=== PATIENT | male | born 1955 | race Caucasian/White ===

== ENCOUNTER → 2021-09-11 09:05 | Outpatient (CLI) | payer MEDICARE, OTHER, SELFPAY ==
[2021-09-11 11:05] LABS: Testosterone 158 ng/dL (71.8-623)
== END ==
PROVIDERS: PCP Physician Assistant; Referring Provider Urology; Visit Provider Urology
DX: C61 Malignant neoplasm of prostate (principal)
CPT/HCPCS: 36415; 84403

== ENCOUNTER → 2021-09-22 09:02 | Outpatient (CLI) | payer MEDICARE, OTHER, SELFPAY ==
[2021-09-22 11:03] LABS: Testosterone 156 ng/dL (71.8-623)
== END ==
PROVIDERS: PCP Physician Assistant; Referring Provider Urology; Visit Provider Urology
DX: R97.20 Elevated prostate specific antigen [PSA] (principal); N52.9 Male erectile dysfunction, unspecified
CPT/HCPCS: 36415; 84153; 84403

== ENCOUNTER → 2022-03-19 10:35 | Outpatient (CLI) | payer MEDICARE, OTHER, SELFPAY ==
[2022-03-21 11:39] LABS: PSA Free % 18.3 % (.); PSA, Total 5.9 ng/mL (0.0-4.0)
== END ==
PROVIDERS: PCP Physician Assistant; Referring Provider Urology; Visit Provider Urology
DX: R97.20 Elevated prostate specific antigen [PSA] (principal)
CPT/HCPCS: 36415; 84153; 84154

== ENCOUNTER 2022-04-06 09:32 | Emergency (ER) | payer MEDICARE, OTHER, SELFPAY ==
[2022-04-06] VITALS (21 sets, daily range): BP systolic 134–194; BP diastolic 67–109; PULSE 86–101; RESP 11–25; TEMP 36.6; O2SAT 93–97; BMI 32.5
--- NOTE | 2022-04-06 09:54 | ED_ITS ---
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 Apparently has been gone she returned last night and noted that he had an unsteady gait. She thought that it might be due to the level of alcohol in his blood he did actually was not that high. Patient states that his dizziness is worse when he bends over. He has to get up slowly just is he has he has freed. He has not fallen. He denies chest pain or palpitations. He has no numbness tingling or weakness. No slurring of speech. However most history is from . Patient states that he actually did have a headache 3 days ago and he actually fell on the bathtub. He does have some bruising on his chest but he states he did not hit his head. On Anticoagulants: No Related Data Home Medications Medication Instructions Recorded Confirmed buspirone 5 mg tablet 5 mg PO BID 07/15/21 04/06/22 cholecalciferol (vitamin D3) 50 50 mcg PO DAILY 07/15/21 04/06/22 mcg (2,000 unit) capsule clindamycin phosphate 1 % topical 1 applic topical BID 07/15/21 04/06/22 solution (Cleocin T) clobetasol 0.05 % topical ointment 1 applic topical BID 07/15/21 04/06/22 (Temovate) fluconazole 100 mg tablet 100 mg PO DAILY 07/15/21 04/06/22 fluocinolone 0.01 % topical 1 applic topical BID 07/15/21 04/06/22 solution fluticasone propionate 50 1 spray intranasal DAILY 07/15/21 04/06/22 mcg/actuation nasal spray,suspension xuhcuxxhzkv-lgapd-afy-vit C-Mn 1 tab PO BID 07/15/21 04/06/22 multivitamin 1 tab PO DAILY 07/15/21 04/06/22 omeprazole 20 mg capsule,delayed 20 mg PO DAILY 07/15/21 04/06/22 release sertraline 100 mg tablet 100 mg PO DAILY 07/15/21 04/06/22 simvastatin 40 mg tablet 40 mg PO QPM 07/15/21 04/06/22 valsartan 320 mg tablet 160 mg PO DAILY 07/15/21 04/06/22 Previous Rx's Medication Instructions Recorded tolterodine 4 mg capsule,extended 4 mg PO DAILY #90 caps 08/18/21 release 24 hr (Detrol LA) Allergies Allergy/AdvReac Type Severity Reaction Status Date / Time No Known Drug Allergies Allergy Verified 04/06/22 09:37 Review of Systems Review of Systems Narrative: GENERAL: Denies chills, fatigue, malaise, fever, sweats, travel HEENT: Denies sinus pain, ear pain, sore throat, difficulty swallowing, neck pain RESPIRATORY: Denies dyspnea, cough, wheezing, hemoptysis, sputum. CARDIOVASCULAR: Denies chest pain, palpitations, orthopnea, edema GASTROINTESTINAL: Denies nausea, vomiting, abdominal pain, diarrhea, constipation, melena. : Denies dysuria, frequency, incontinence, hematuria, urinary retention, flank pain. MUSCULOSKELETAL: Denies weakness, joint pain, or bony pain SKIN: No rash, no erythema, no pruritus NEUROLOGIC: See HPI PSYCHIATRIC: No concerning psychosocial issues. 12 point review of systems is negative except for those stated above and HPI Hematologic/Lymphatic On Anticoagulants: No Patient History Medical History BPH (benign prostatic hyperplasia) CKD (chronic kidney disease) stage 3, GFR 30-59 ml/min Depression Elevated PSA Erectile dysfunction GI bleed HTN (hypertension) Hyperlipidemia Knee osteoarthritis Prediabetes Sleep apnea Spermatocele Urge incontinence of urine Urinary urgency Surgical History H/O prostate biopsy History of liver biopsy History of prostate surgery Family History Father Blood disease Hearing impairment Mother Hypertension Thyroid disorder Family/Other Diabetes mellitus Social History marital status: number of children: 0 Previous occupational history: retired Smoking Status: Never smoker alcohol intake: never caffeine: Yes Type(s) of exercise: walking frequency: daily duration: > 90 minutes/day Smoking Status: Never smoker alcohol intake frequency: other Substance Use Type: does not use Exam Initial Vital Signs Initial Vital Signs: Vital Signs Temperature 97.8 F 04/06/22 09:37 Pulse Rate 101 H 04/06/22 09:37 Respiratory Rate 15 04/06/22 09:37 Blood Pressure 183/109 H 04/06/22 09:37 Pulse Oximetry 96 04/06/22 09:37 Oxygen Delivery Method 04/06/22 09:37 GENERAL: Alert 66-year-old no acute distress HEENT: Head atraumatic,EOMI, pupils reactive, face symmetric, moist mucous membranes CARDIOVASCULAR: Regular rate and rhythm without murmurs, rubs or gallops. RESPIRATORY: Breath sounds equal bilaterally, no wheezes rales or rhonchi. ABDOMEN: Soft, nontender. Normoactive bowel sounds all 4 quadrants. No guarding or rebound. EXTREMITIES: Normal range of motion, no clubbing or edema. Neurovascularly intact NEUROLOGICAL: Alert and oriented x4.Normal gait and speech. Cranial nerves II through XII grossly intact. Good dxqrcf-eb-nifa, good mzds-el-meeh, strength equal bilaterally, no dysarthria or aphasia, sensation in tact to soft touch bilaterally, no visual changes, no facial droop SKIN: Abrasion center of chest and like left abdomen no other signs of trauma Scores GCS Ruthy coma scale eye opening: Spontaneous [place] coma scale verbal response: Orientated [place] coma scale motor response: Obey commands Ruthy coma scale total score: 15 NIH Stroke Scale Level of Conciousness: Alert, keenly responsive Ask month/age: Answers both questions correctly. Open/close eyes, close hand: Performs both tasks correctly Best gaze horizontal: Normal Visual banks: No visual loss Facial palsy: Normal symetrical movement Left arm drift: No drift for full 10 sec Right arm drift: No drift for full 10 sec Left leg drift: No drift for full 5 sec Right leg drift: No drift for full 5 sec Limb ataxia: Absent Sensory on face/arms/legs: Normal, no sensory loss Best language: No aphasia, normal Dysarthria: Normal Extinction or inattention: No abnormality Total NIH Stroke scale score: 0 Course Orders Ordered: ED Orders 04/06/22 09:50 Complete Blood Count AUTO DIFF Stat Comprehensive Metabolic Panel Stat Ethanol (ETOH) Stat Partial Thromboplastin Time Stat Prothrombin Time INR Stat Troponin & CK Cardiac Panel Stat 04/06/22 09:52 EKG-12 Lead Stat 04/06/22 09:58 CT head/brain wo con Stat 04/06/22 10:35 COVID19 -Nasal RAPID/Pre-Proc Stat 04/06/22 10:48 Chest [XR chest 1V] Stat Discontinued Medications Sodium Chloride (Normal Saline 0.9%) 1,000 mls @ 1,000 mls/hr IV CONT JENNIFER Last Admin: 04/06/22 10:41 Dose: Not Given Documented By: OJ Nicardipine HCl 25 mg/ Sodium (Chloride) 250 mls @ 50 mls/hr IV TITRATE JENNIFER; Protocol Last Titration: 04/06/22 11:48 Dose: 0 mg/hr, 0 mls/hr Documented By: Titration: 04/06/22 11:33 Dose: 15 mg/hr, 150 mls/hr Documented By: Titration: 04/06/22 11:13 Dose: 12.5 mg/hr, 125 mls/hr Documented By: Titration: 04/06/22 11:06 Dose: 10 mg/hr, 100 mls/hr Documented By: Titration: 04/06/22 10:49 Dose: 7.5 mg/hr, 75 mls/hr Documented By: Admin: 04/06/22 10:49 Dose: 5 mg/hr, 50 mls/hr Documented By: OJ Vital Signs Vital signs: Vital Signs - 8 hr 04/06/22 09:37 04/06/22 09:46 04/06/22 09:47 Temperature 97.8 F Pulse Rate 101 H 97 H Respiratory Rate 15 22 Blood Pressure 183/109 H 180/102 H Pulse Oximetry 96 97 Oxygen Delivery Method Room Air 04/06/22 10:00 04/06/22 10:00 04/06/22 10:12 Temperature Pulse Rate 93 H 93 H Respiratory Rate 22 25 H Blood Pressure 181/103 H Pulse Oximetry 96 97 Oxygen Delivery Method Room Air 04/06/22 10:12 04/06/22 10:15 04/06/22 10:15 Temperature Pulse Rate 92 H Respiratory Rate 12 Blood Pressure 194/108 H 160/84 H Pulse Oximetry 97 Oxygen Delivery Method 04/06/22 10:30 04/06/22 10:30 04/06/22 10:53 Temperature Pulse Rate 88 87 Respiratory Rate 11 L 18 Blood Pressure 148/75 H Pulse Oximetry 96 97 Oxygen Delivery Method 04/06/22 10:53 04/06/22 10:55 04/06/22 10:55 Temperature Pulse Rate 87 Respiratory Rate 15 Blood Pressure 156/95 H 169/91 H Pulse Oximetry 96 Oxygen Delivery Method 04/06/22 10:57 04/06/22 10:57 04/06/22 11:00 Temperature Pulse Rate 86 Respiratory Rate 15 Blood Pressure 161/89 H 156/101 H Pulse Oximetry 96 Oxygen Delivery Method 04/06/22 11:00 04/06/22 11:05 04/06/22 11:05 Temperature Pulse Rate 87 91 H Respiratory Rate 22 16 Blood Pressure 156/84 H Pulse Oximetry 96 96 Oxygen Delivery Method 04/06/22 11:10 04/06/22 11:10 04/06/22 11:12 Temperature Pulse Rate 90 90 Respiratory Rate 16 15 Blood Pressure 154/85 H Pulse Oximetry 95 95 Oxygen Delivery Method 04/06/22 11:12 04/06/22 11:15 04/06/22 11:15 Temperature Pulse Rate 92 H Respiratory Rate 22 Blood Pressure 149/81 H 147/77 H Pulse Oximetry 95 Oxygen Delivery Method Room Air 04/06/22 11:18 04/06/22 11:18 04/06/22 11:20 Temperature Pulse Rate 92 H 93 H Respiratory Rate 21 20 Blood Pressure 144/77 H Pulse Oximetry 95 94 Oxygen Delivery Method 04/06/22 11:20 04/06/22 11:25 04/06/22 11:25 Temperature Pulse Rate 92 H Respiratory Rate 19 Blood Pressure 143/73 H 134/67 Pulse Oximetry 93 Oxygen Delivery Method 04/06/22 11:30 04/06/22 11:30 04/06/22 11:33 Temperature Pulse Rate 96 H 95 H Respiratory Rate 21 18 Blood Pressure 146/67 H Pulse Oximetry 95 95 Oxygen Delivery Method 04/06/22 11:33 04/06/22 11:35 04/06/22 11:35 Temperature Pulse Rate 93 H Respiratory Rate 19 Blood Pressure 148/70 H 143/69 H Pulse Oximetry 93 Oxygen Delivery Method MDM - Neuro Symptoms/Deficit Lab Data Result diagrams: 04/06/22 09:50 04/06/22 09:50 Labs: Lab Results 04/06/22 04/06/22 04/06/22 Range/Units 09:50 09:50 09:50 WBC 7.6 (4.5-11.0) X10^3/uL RBC 4.45 L (4.5-5.9) X10^6/uL Hgb 14.3 (13.5-17.5) g/dL Hct 40.5 L (41-53) % MCV 91.2 (80-100) fL MCH 32.1 (26-34) PG MCHC 35.2 (30-36) % RDW 13.3 (11.6-14.8) % Plt Count 165 (150-400) X10^3/uL Neut % (Auto) 58.7 (50-75) % Lymph % (Auto) 32.3 (25-40) % Carlton % (Auto) 6.5 (3-14) % Eos % (Auto) 1.3 L (2-4) % Baso % (Auto) 1.2 (0-2) % Neut # (Auto) 4500 (7783-7190) /uL Lymph # (Auto) 2500 (2968-4925) /uL Carlton # (Auto) 500 (0-900) /uL Eos # (Auto) 100 (0-450) /uL Baso # (Auto) 100 (0-100) /uL PT 12.2 (10.1-12.7) SECONDS INR 1.1 (0.9-1.3) APTT 32 (26.4-36.2) SECONDS Sodium 140 (137-145) mmol/L Potassium 4.4 (3.4-5.1) mmol/L Chloride 108 H (98-107) mmol/L Carbon Dioxide 20 L (22-32) mmol/L BUN 12 (9-20) mg/dL Creatinine 1.10 (0.66-1.25) mg/dL Estimated GFR > 60 (>60) mL/min BUN/Creatinine Ratio 10.9 (6-22) Glucose 145 H (80-110) mg/dL Calcium 9.5 (8.4-10.2) mg/dL Total Bilirubin 0.8 (0.2-1.3) mg/dL AST 87 H (17-59) IU/L ALT 116 H (<50) IU/L Alkaline Phosphatase 69 (38-126) U/L Total Creatine Kinase 261 H (55-170) U/L CK-MB (CK-2) 1.43 (<2.37) ng/mL CK-MB (CK-2) Rel Index 0.5 L (1.5-5.0) % Troponin I < 0.012 (0.01-0.034) ng/mL Total Protein 8.0 (6.3-8.2) g/dL Albumin 4.9 (3.5-5.0) g/dL Globulin 3.1 (1.7-4.1) g/dL Albumin/Globulin Ratio 1.6 (1.0-2.8) Ethyl Alcohol < 10 ( - 10) mg/dL SARS-CoV-2 (PCR) (Negative) 04/06/22 Range/Units 10:35 WBC (4.5-11.0) X10^3/uL RBC (4.5-5.9) X10^6/uL Hgb (13.5-17.5) g/dL Hct (41-53) % MCV (80-100) fL MCH (26-34) PG MCHC (30-36) % RDW (11.6-14.8) % Plt Count (150-400) X10^3/uL Neut % (Auto) (50-75) % Lymph % (Auto) (25-40) % Carlton % (Auto) (3-14) % Eos % (Auto) (2-4) % Baso % (Auto) (0-2) % Neut # (Auto) (1980-9591) /uL Lymph # (Auto) (4014-0744) /uL Carlton # (Auto) (0-900) /uL Eos # (Auto) (0-450) /uL Baso # (Auto) (0-100) /uL PT (10.1-12.7) SECONDS INR (0.9-1.3) APTT (26.4-36.2) SECONDS Sodium (137-145) mmol/L Potassium (3.4-5.1) mmol/L Chloride (98-107) mmol/L Carbon Dioxide (22-32) mmol/L BUN (9-20) mg/dL Creatinine (0.66-1.25) mg/dL Estimated GFR (>60) mL/min BUN/Creatinine Ratio (6-22) Glucose (80-110) mg/dL Calcium (8.4-10.2) mg/dL Total Bilirubin (0.2-1.3) mg/dL AST (17-59) IU/L ALT (<50) IU/L Alkaline Phosphatase (38-126) U/L Total Creatine Kinase (55-170) U/L CK-MB (CK-2) (<2.37) ng/mL CK-MB (CK-2) Rel Index (1.5-5.0) % Troponin I (0.01-0.034) ng/mL Total Protein (6.3-8.2) g/dL Albumin (3.5-5.0) g/dL Globulin (1.7-4.1) g/dL Albumin/Globulin Ratio (1.0-2.8) Ethyl Alcohol ( - 10) mg/dL SARS-CoV-2 (PCR) Negative (Negative) Point of Care Testing Glucose POC [address] scan - head: Radiologist's Impression: CT Scan Report Signed Patient: Matthieu Torres MR#: [id number] : 1955 Acct:[id number] Age/Sex: 66 / M Date of Service: 04/06/22 Loc: ED Accession Number: [id number] ?? Procedure: CT head/brain wo con Ordering Provider: Smita Goodman D.O. PROCEDURE:? CT HEAD/BRAIN WO CON ? INDICATIONS:? dizzy x 3 days ? TECHNIQUE:? Noncontrast 4.5 mm thick angled axial sections acquired from the foramen magnum to the vertex, with coronal and sagittal reformats.? For radiation dose reduction, the following was used:? automated exposure control, adjustment of mA and/or kV according to patient size.? ? COMPARISON:? None. ? FINDINGS:? ? There is a mixed density right cerebral convexity subdural hematoma extending nearly the full AP width of the subdural space producing overall moderate mass effect manifesting as regional sulcal effacement and mild effacement of the right lateral ventricle.? There is approximately 8 millimeter right to left midline shift at the level of the septum pellucidum and 3rd ventricle.? There is somewhat dilated appearance of the basilar tip suspicious for a possible aneurysm.? Holland-white matter differentiation is maintained without CT evidence of an acute large territory infarct. ? IMPRESSION:? ? Mixed density right cerebral convexity hematoma, moderate-sized and producing overall moderate mass effect including 8 millimeter right left midline shift.? Mixed density attenuation of the hematoma indicates blood of different ages and suggests a recent bleeding event into the hematoma.? ? ? 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 CT angiogram of the head recommended when clinically appropriate.? ? Dictated by: Dank Garza M.D. on 04/06/2022 at 10:21 ? ? Chest x-ray: Radiologist's Impression: [facility] [id number] XRay Report Signed Patient: Matthieu Torres MR#: [id number] : 1955 Acct:[id number] Age/Sex: 66 / M Date of Service: 04/06/22 Loc: ED Accession Number: [id number] ?? Procedure: XR chest 1V Ordering Provider: Smita Goodman D.O. PROCEDURE:? XR CHEST 1V ? INDICATIONS:? fall ? TECHNIQUE:? One view of the chest was acquired.? ? COMPARISON:? None. ? FINDINGS:? ? Surgical changes and devices:? None.? ? Lungs and pleura:? Lungs are clear.? No pleural effusions or pneumothorax.? ? Mediastinum:? Mildly tortuous thoracic aorta is seen.? Heart size is enlarged.? ? Bones and chest wall:? No suspicious bony lesions.? Overlying soft tissues appear unremarkable.? ? IMPRESSION:? No acute cardiopulmonary pathology. ? ? Dictated by: Pantera Mims M.D. on 04/06/2022 at 11:08 ? ? ECG Data Interpretation: Normal sinus rhythm rate 98 OK interval 152 QRS [address] changes no T- wave inversions MDM Narrative Medical decision making narrative: Patient is found to have spontaneous acute on chronic subdural hematoma with 8 mm shift. He is neurologically intact she denies any headache nausea vomiting. Nicardipine drip is started for blood pressure control. Dr. Wallis at [facility] ED has been updated patient's symptoms test resulting kindly accepts patient for transfer. Critical Care Time Critical Care Time Critical Care Time: Yes Total Critical Care Time: 30 Attestation: The high probability of a clinically significant, sudden or life threatening deterioration of the [cardiovascular] system(s) required my full and direct attention, intervention and personal management. The aggregate critical care time was 30 minutes. This time is in addition to time spent performing reported procedures but includes the following: [x] Data Review and interpretation [x] Patient assessment and monitoring of vital signs [x] Documentation [x] Medication orders and management Discharge Plan Departure Patient Disposition: [facility] Clinical Impression: Acute subdural hematoma Prescriptions: No Action tolterodine [Detrol LA] 4 mg capsule,extended release 24hr 4 mg PO DAILY Qty: 90 3RF fluconazole 100 mg tablet 100 mg PO DAILY omeprazole 20 mg capsule,delayed release(DR/EC) 20 mg PO DAILY valsartan 320 mg tablet 160 mg PO DAILY simvastatin 40 mg tablet 40 mg PO QPM sertraline 100 mg tablet 100 mg PO DAILY buspirone 5 mg tablet 5 mg PO BID fluticasone propionate 50 mcg/actuation spray,suspension 1 spray intranasal DAILY Rx Instructions: administer into each nostril clindamycin phosphate [Cleocin T] 1 % solution 1 applic topical BID fluocinolone 0.01 % solution 1 applic topical BID multivitamin Tablet 1 tab PO DAILY valszwoqmnp-wehkj-rro-vit C-Mn 1 tab PO BID cholecalciferol (vitamin D3) 50 mcg (2,000 unit) capsule 50 mcg PO DAILY clobetasol [Temovate] 0.05 % ointment 1 applic topical BID Referrals: Starla Kaur PA-C [Primary Care Provider] -
--- NOTE | 2022-04-06 09:58 | DI.CT.S_ITS ---
PROCEDURE: CT HEAD/BRAIN WO CON INDICATIONS: dizzy x 3 days TECHNIQUE: Noncontrast 4.5 mm thick angled axial sections acquired from the foramen magnum to the vertex, with coronal and sagittal reformats. For radiation dose reduction, the following was used: automated exposure control, adjustment of mA and/or kV according to patient size. COMPARISON: None. FINDINGS: There is a mixed density right cerebral convexity subdural hematoma extending nearly the full AP width of the subdural space producing overall moderate mass effect manifesting as regional sulcal effacement and mild effacement of the right lateral ventricle. There is approximately 8 millimeter right to left midline shift at the level of the septum pellucidum and 3rd ventricle. There is somewhat dilated appearance of the basilar tip suspicious for a possible aneurysm. Holland-white matter differentiation is maintained without CT evidence of an acute large territory infarct. IMPRESSION: Mixed density right cerebral convexity hematoma, moderate-sized and producing overall moderate mass effect including 8 millimeter right left midline shift. Mixed density attenuation of the hematoma indicates blood of different ages and suggests a recent bleeding event into the hematoma. 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 CT angiogram of the head recommended when clinically appropriate. Dictated by: Dank Garza M.D. on 04/06/2022 at 10:21 Approved by: Dank Garza M.D. on 04/06/2022 at 10:27
[2022-04-06 10:09] LABS: Add Manual Diff / Slide Review NO; Basophils Absolute Auto 100 /uL (0-100); Basophils Percent Auto 1.2 % (0-2); Eosinophils Absolute Auto 100 /uL (0-450); Eosinophils Percent Auto 1.3 % (2-4); Hematocrit 40.5 % (41-53); Hemoglobin 14.3 g/dL (13.5-17.5); Lymphocytes Absolute Auto 2500 /uL (1100-4500); Lymphocytes Percent Auto 32.3 % (25-40); Mean Corpuscular HGB Conc 35.2 % (30-36); Mean Corpuscular Hemoglobin 32.1 PG (26-34); Mean Corpuscular Volume 91.2 fL (80-100); Monocytes Absolute Auto 500 /uL (0-900); Monocytes Percent Auto 6.5 % (3-14); Neutrophils Absolute Auto 4500 /uL (1500-7000); Neutrophils Percent Auto 58.7 % (50-75); Platelet Count 165 X10^3/uL (150-400); Red Blood Cell Count 4.45 X10^6/uL (4.5-5.9); Red Cell Distribution Width 13.3 % (11.6-14.8); White Blood Cell Count 7.6 X10^3/uL (4.5-11.0)
[2022-04-06 10:21] LABS: INR 1.1 (0.9-1.3); Prothrombin Time 12.2 SECONDS (10.1-12.7)
[2022-04-06 10:24] LABS: PTT Partial Thromboplastin Tim 32 SECONDS (26.4-36.2)
[2022-04-06 10:30] LABS: Alanine Aminotransferase 116 IU/L (<50); Albumin 4.9 g/dL (3.5-5.0); Albumin Globulin Ratio 1.6 (1.0-2.8); Alkaline Phosphatase 69 U/L (38-126); Aspartate Aminotransferase 87 IU/L (17-59); BUN Creatinine Ratio 10.9 (6-22); Bilirubin Total 0.8 mg/dL (0.2-1.3); Blood Urea Nitrogen 12 mg/dL (9-20); Calcium 9.5 mg/dL (8.4-10.2); Carbon Dioxide 20 mmol/L (22-32); Chloride 108 mmol/L (98-107); Creatine Kinase 261 U/L (55-170); Estimated Glomerular Filt Rate > 60 mL/min (>60); Ethanol (ETOH) < 10 mg/dL; Globulin 3.1 g/dL (1.7-4.1); Glucose 145 mg/dL (80-110); HEMOLYSIS 19 (0-50); Potassium 4.4 mmol/L (3.4-5.1); Sodium 140 mmol/L (137-145)
--- NOTE | 2022-04-06 10:30 | PC.NURSE ---
[facility] contacted at 1030am, images and facesheet sent.
[2022-04-06 10:41] LABS: Troponin I < 0.012 ng/mL (0.01-0.034)
[2022-04-06 10:44] LABS: CKMB % Relative Index 0.5 % (1.5-5.0); Creatine Kinase MB 1.43 ng/mL (<2.37)
--- NOTE | 2022-04-06 10:48 | DI.RAD.S_ITS ---
PROCEDURE: XR CHEST 1V INDICATIONS: fall TECHNIQUE: One view of the chest was acquired. COMPARISON: None. FINDINGS: Surgical changes and devices: None. Lungs and pleura: Lungs are clear. No pleural effusions or pneumothorax. Mediastinum: Mildly tortuous thoracic aorta is seen. Heart size is enlarged. Bones and chest wall: No suspicious bony lesions. Overlying soft tissues appear unremarkable. IMPRESSION: No acute cardiopulmonary pathology. Dictated by: Pantera Mims M.D. on 04/06/2022 at 11:08 Approved by: Pantera Mims M.D. on 04/06/2022 at 11:09
[2022-04-06] MEDS: NICARDIPINE 25 MG in SODIUM CHLORIDE 0.9% 240 ML 50 MG IV (10:49)
[2022-04-06 11:12] LABS: COVID19 -Nasal RAPID Negative (Negative)
== END 2022-04-06 11:49 | disposition short-term general hospital (02) ==
PROVIDERS: Emergency Provider Emergency Medicine; PCP Physician Assistant
DX: S06.5X0A Traumatic subdural hemorrhage without loss of consciousness, initial encounter (principal); R51.9 Headache, unspecified; S20.319A Abrasion of unspecified front wall of thorax, initial encounter; Z20.822 Contact with and (suspected) exposure to COVID-19; W18.2XXA Fall in (into) shower or empty bathtub, initial encounter
CPT/HCPCS: 36415; 70450; 70496; 70498; 71045; 80053; 80320; 82550; 82553; 82962; 84484; 85025; 85610; 85730; 87635; 93005; 93010; 96365; 99285; C9803

== ENCOUNTER 2022-04-22 09:24 | Emergency (ER) | payer MEDICARE, OTHER, SELFPAY ==
[2022-04-22] VITALS (12 sets, daily range): BP systolic 158–189; BP diastolic 80–113; PULSE 89–112; RESP 16–18; TEMP 36.7; O2SAT 95–97; BMI 33.2
--- NOTE | 2022-04-22 09:43 | DI.CT.S_ITS ---
PROCEDURE: CT HEAD/BRAIN WO CON INDICATIONS: recent brain surgery,HTN,dizzy and nauseated TECHNIQUE: Noncontrast 4.5 mm thick angled axial sections acquired from the foramen magnum to the vertex, with coronal and sagittal reformats. For radiation dose reduction, the following was used: automated exposure control, adjustment of mA and/or kV according to patient size. COMPARISON: [facility], CT, CT HEAD/BRAIN WO CON, 04/06/2022, 9:57. FINDINGS: Image quality: Excellent. CSF spaces: Basal cisterns are patent. The ventricles are symmetric in size and shape. Brain: There is a low-density right several hematoma seen, with a maximum thickness of 1.6 cm. No nenita acute components are seen. This is improved compared to the prior examination. There remains midline shift, which is also improved compared to the prior examination, now measuring 4 mm. No intracranial masses. There is cerebral volume loss for age, with resultant ventricular and sulcal prominence. There are periventricular and deep white matter chronic small vessel ischemic changes. There is intracranial internal carotid artery atherosclerosis. Skull and face: Right-sided anant holes can be seen. Calvarium and visualized facial bones appear intact, without suspicious lesions. Sinuses: Visualized sinuses and mastoids are clear. IMPRESSION: Interval right-sided anant holes, with improved right-sided subdural hematoma, yet without resolution. Improved midline shift, 4 mm. No nenita acute interval hemorrhage is seen. Dictated by: Skyler Cornejo M.D. on 04/22/2022 at 8:52 Approved by: Skyler Cornejo M.D. on 04/22/2022 at 8:54
--- NOTE | 2022-04-22 10:32 | PC.NURSE ---
increasing bp's, recent cranial sx at [facility], yesterday period of dizzy/fatigue, denies current complaint of those symptoms.
[2022-04-22] MEDS: SODIUM CHLORIDE 0.9% 1,000 ML 125 ML IV (10:56)
[2022-04-22 10:59] LABS: Add Manual Diff / Slide Review NO; Basophils Absolute Auto 100 /uL (0-100); Basophils Percent Auto 1.2 % (0-2); Eosinophils Absolute Auto 100 /uL (0-450); Eosinophils Percent Auto 1.2 % (2-4); Hematocrit 39.4 % (41-53); Hemoglobin 13.7 g/dL (13.5-17.5); Lymphocytes Absolute Auto 2500 /uL (1100-4500); Lymphocytes Percent Auto 27.7 % (25-40); Mean Corpuscular HGB Conc 34.6 % (30-36); Mean Corpuscular Hemoglobin 31.5 PG (26-34); Mean Corpuscular Volume 91.1 fL (80-100); Monocytes Absolute Auto 500 /uL (0-900); Monocytes Percent Auto 5.3 % (3-14); Neutrophils Absolute Auto 5900 /uL (1500-7000); Neutrophils Percent Auto 64.6 % (50-75); Platelet Count 235 X10^3/uL (150-400); Red Blood Cell Count 4.33 X10^6/uL (4.5-5.9); White Blood Cell Count 9.2 X10^3/uL (4.5-11.0)
[2022-04-22 11:11] LABS: Alanine Aminotransferase 95 IU/L (<50); Albumin 4.8 g/dL (3.5-5.0); Albumin Globulin Ratio 1.7 (1.0-2.8); Alkaline Phosphatase 76 U/L (38-126); Aspartate Aminotransferase 70 IU/L (17-59); BUN Creatinine Ratio 14.9 (6-22); Bilirubin Total 0.5 mg/dL (0.2-1.3); Blood Urea Nitrogen 18 mg/dL (9-20); Calcium 9.4 mg/dL (8.4-10.2); Carbon Dioxide 24 mmol/L (22-32); Chloride 106 mmol/L (98-107); Creatine Kinase 80 U/L (55-170); Estimated Glomerular Filt Rate > 60 mL/min (>60); Globulin 2.9 g/dL (1.7-4.1); Glucose 118 mg/dL (80-110); HEMOLYSIS < 15 (0-50); Potassium 4.4 mmol/L (3.4-5.1); Sodium 138 mmol/L (137-145); Total Protein 7.7 g/dL (6.3-8.2)
[2022-04-22 11:22] LABS: NT-proBNP (BNP-Adult 18+) 37 pg/mL (<125); Troponin I < 0.012 ng/mL (0.01-0.034)
[2022-04-22 11:23] LABS: COVID19 -Nasal RAPID Negative (Negative)
--- NOTE | 2022-04-22 12:38 | DI.CT.S_ITS ---
PROCEDURE: CT ANGIO HEAD AND NECK INDICATIONS: s/p craniotomy, dizziness, incontinence x1 TECHNIQUE: Noncontrast images were performed earlier in the day and not repeated. After the administration of intravenous contrast, 1 mm thick sections acquired from the aortic arch through the [place]. Post-contrast 4.5 mm thick sections then re-acquired from the foramen magnum to the vertex. 3-dimensional benowtk-ghvsxkelj-ampbeueomr (MIP) and/or volume rendering reformats were acquired of the central intracranial vasculature and neck separately. For radiation dose reduction, the following was used: automated exposure control, adjustment of mA and/or kV according to patient size. COMPARISON: [facility], CT, CT HEAD/BRAIN WO CON, 04/06/2022, 9:57. [facility], CT, CT HEAD/BRAIN WO CON, 04/22/2022, 9:44. FINDINGS: Image quality: This examination is limited by involuntary motion artifact. BRAIN: CSF spaces: Ventricles are normal in size and shape. Basal cisterns are patent. No extra-axial fluid collections. Brain: Stable resolving right-sided subdural hemorrhage is again seen, with 4 mm of midline shift. No midline shift. [place]-white matter interface appears intact. Skull and face: Right-sided anant holes are seen. Calvarium and facial bones appear intact, without suspicious lesions. Orbits appear normal. Sinuses: Sinuses and mastoids are clear. HEAD CT ANGIOGRAPHY: Anterior circulation: Intracranial internal carotid arteries are normal in size and flow. The flow within the paired anterior cerebral arteries is normal and symmetric. The flow within the middle cerebral arteries is normal and symmetric. The anterior communicating artery is seen. No aneurysms are seen. Posterior circulation: Visualized portions of the vertebral arteries demonstrate normal caliber, and join to form a normal appearing basilar artery. Flow within the posterior cerebral arteries is normal and symmetric. No aneurysms are seen. NECK CT ANGIOGRAPHY: Carotid system: The great vessels demonstrate a conventional anatomy as they arise from the aortic arch. The origins of the common carotid arteries appear patent. The common carotid arteries demonstrate normal caliber and courses. The bifurcation regions are both widely patent. The internal carotid arteries demonstrate normal calibers and courses. Posterior circulation: The origins of the vertebral arteries both appear widely patent. The more superior extracranial portions of both vertebral arteries also demonstrate normal courses and calibers. They join to form a normal appearing basilar artery. Soft tissues: Visualized neck soft tissues demonstrate no suspicious abnormalities. Bones: No suspicious bony lesions. Visualized cervical spine appears normally aligned. Cervical spine degenerative changes are seen, with moderate disc space narrowing at C3-C4 and at least moderate disc space narrowing at C4-C5, C5-C6, and C6-C7. Post erected endplate osteophytes are seen, which are worst at C5-C6. IMPRESSION: No significant intracranial arterial abnormality is seen. Stable resolving right-sided subdural hemorrhage, with associated anant holes. Within the arteries of the neck, no hemodynamically significant stenosis can be seen. Cervical spine degenerative changes are noted. Any quantitative measurements of stenosis were performed using NASCET criteria. Dictated by: Skyler Cornejo M.D. on 04/22/2022 at 12:19 Approved by: Skyler Cornejo M.D. on 04/22/2022 at 12:22
--- NOTE | 2022-04-22 12:46 | ED.GENADULT ---
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 He is 2 weeks status post right frontal anant hole evacuation and drainage at [facility]. Patient endorses that his blood pressure has been elevated above his baseline following his surgery. He reports that it used to be systolic 130s, it has been up to 160s after his surgery and he is concerned this is the reason for his symptoms yesterday. He had one episode of urinary incontinence, and has had dizziness without vision changes since yesterday. He denies any vision changes today, he denies any incontinence today or urinary retention. He denies any dribbling, fever, nausea, vomiting, unstable gait. He reports that he is eating and drinking per his normal without any difficulty. Patient reports that he has follow-up with Neurosurgery at [facility] scheduled 04/27/2022 with nurse practitioner Leyda. He denies any recent trauma, states that it is possible he has been having too much exertion or activity at home, he thinks that he has been dehydrated, denies any recent fever, runny nose, cough, shortness of breath, chest pain, weakness, sensation changes anywhere. Related Data Home Medications Medication Instructions Recorded Confirmed buspirone 5 mg tablet 5 mg PO BID 07/15/21 04/14/22 cholecalciferol (vitamin D3) 50 50 mcg PO DAILY 07/15/21 04/14/22 mcg (2,000 unit) capsule clobetasol 0.05 % topical ointment 1 applic topical BID 07/15/21 04/14/22 (Temovate) fluconazole 100 mg tablet 100 mg PO DAILY 07/15/21 04/14/22 toviajhbwcz-uzooc-cxc-vit C-Mn 1 tab PO BID 07/15/21 04/14/22 multivitamin 1 tab PO DAILY 07/15/21 04/14/22 omeprazole 20 mg capsule,delayed 20 mg PO DAILY 07/15/21 04/14/22 release sertraline 100 mg tablet 100 mg PO DAILY 07/15/21 04/14/22 valsartan 320 mg tablet 160 mg PO DAILY 07/15/21 04/14/22 Previous Rx's Medication Instructions Recorded tolterodine 4 mg capsule,extended 4 mg PO DAILY #90 caps 04/14/22 release 24 hr (Detrol [place]) Allergies Allergy/AdvReac Type Severity Reaction Status Date / Time No Known Drug Allergies Allergy Verified 04/22/22 09:31 Review of Systems <RICH Valero - Last Filed: 04/22/22 19:19> Review of Systems Narrative: Independently reviewed vitals signs and nursing notes. General: cooperative, comfortable, in no acute distress, well groomed Head: atraumatic, symmetrical facial expressions, amanuel present to right frontal and temporal region, Neck: supple Eyes: equal round and reactive, EOMI, conjunctiva normal, no nystagmus Nose: nares patent, no rhinorrhea Mouth/Throat: moist mucus membranes Cardiovascular: regular rate and rhythm, no peripheral edema, warm extremities Respiratory: normal effort, able to speak in complete sentences, no audible wheezing, stridor, or rales. No retractions or tachypnea. GI: abdomen soft, nontender to palpation, nondistended, no masses, no exquisite tenderness with exam, without guarding or rebound. MSK: moves all extremities, neurovascularly intact, no weakness, normal tone Skin: brisk capillary refill, no rash, no erythema Neuro: normal speech and cognition, A&O x3 Psych: mental status is grossly normal, congruent mood, normal affect, pleasant and cooperative, ambulatory with stable gait Patient History <RICH Valero - Last Filed: 04/22/22 19:19> Medical History BPH (benign prostatic hyperplasia) CKD (chronic kidney disease) stage 3, GFR 30-59 ml/min Depression Elevated PSA Erectile dysfunction GI bleed HTN (hypertension) Hyperlipidemia Knee osteoarthritis Prediabetes Sleep apnea Spermatocele Urge incontinence of urine Urinary urgency Surgical History H/O prostate biopsy History of liver biopsy History of prostate surgery Family History Father Blood disease Hearing impairment Mother Hypertension Thyroid disorder Family/Other Diabetes mellitus Social History marital status: number of children: 0 Previous occupational history: retired Smoking Status: Never smoker alcohol intake: never caffeine: Yes Type(s) of exercise: walking frequency: daily duration: > 90 minutes/day Smoking Status: Never smoker alcohol intake frequency: other Substance Use Type: does not use Exam <RICH Valero - Last Filed: 04/22/22 19:19> Narrative Exam Narrative: Independently reviewed vitals signs and nursing notes. General: cooperative, comfortable, in no acute distress, well groomed Head: atraumatic, symmetrical facial expressions, amanuel present to his right parietal scalp, no drainage, no erythema, no edema, appears to have healed without any complications Neck: supple, no anterior cervical lymphadenopathy Eyes: equal round and reactive, EOMI, conjunctiva normal, no nystagmus Nose: nares patent, no rhinorrhea Mouth/Throat: moist mucus membranes Cardiovascular: regular rate and rhythm, no peripheral edema, warm extremities, S1-S2 without murmur, systolic blood pressures 140s to 150s Respiratory: normal effort, able to speak in complete sentences, no audible wheezing, stridor, or rales. No retractions, hypoxia or tachypnea. GI: abdomen soft, nontender to palpation, nondistended, no masses, no exquisite tenderness with exam, without guarding or rebound. MSK: moves all extremities, neurovascularly intact, no weakness, normal tone Skin: brisk capillary refill, no rash, no erythema Neuro: normal speech and cognition, A&O x3, using appropriate words, cranial nerves 2-12 are grossly intact without deficit on exam. Patient ambulates with a steady gait, denies any dizziness or lightheadedness when doing so Psych: mental status is grossly normal, congruent mood, normal affect, pleasant and cooperative Initial Vital Signs Initial Vital Signs: Vital Signs Temperature 98.1 F 04/22/22 09:31 Pulse Rate 112 H 04/22/22 09:31 Respiratory Rate 16 04/22/22 09:31 Blood Pressure 178/92 H 04/22/22 09:31 Pulse Oximetry 97 04/22/22 09:31 Oxygen Delivery Method 04/22/22 09:31 <Jayson Xiao DO - Last Filed: 04/28/22 00:38> Initial Vital Signs Initial Vital Signs: Vital Signs Temperature 98.1 F 04/22/22 09:31 Pulse Rate 112 H 04/22/22 09:31 Respiratory Rate 16 04/22/22 09:31 Blood Pressure 178/92 H 04/22/22 09:31 Pulse Oximetry 97 04/22/22 09:31 Oxygen Delivery Method 04/22/22 09:31 Course <RICH Valero - Last Filed: 04/22/22 19:19> Orders Ordered: Discontinued Medications Sodium Chloride (Normal Saline 0.9%) 1,000 mls @ 125 mls/hr IV CONT JENNIFER Last Infusion: 04/22/22 13:44 Dose: 0 mls/hr Documented By: Admin: 04/22/22 10:56 Dose: 125 mls/hr Documented By: SANA Vital Signs Vital signs: Vital Signs - 8 hr 04/22/22 11:30 04/22/22 11:30 04/22/22 12:00 Pulse Rate 96 H Respiratory Rate 18 Blood Pressure 182/96 H 171/97 H Pulse Oximetry 95 04/22/22 12:00 04/22/22 12:29 04/22/22 12:30 Pulse Rate 95 H 92 H Respiratory Rate 18 18 Blood Pressure 162/90 H Pulse Oximetry 96 96 04/22/22 12:30 04/22/22 13:34 04/22/22 13:35 Pulse Rate 92 H 89 Respiratory Rate 18 18 Blood Pressure 162/90 H 189/113 H Pulse Oximetry 97 96 04/22/22 13:35 Pulse Rate 89 Respiratory Rate Blood Pressure Pulse Oximetry 96 <Jayson Xiao DO - Last Filed: 04/28/22 00:38> Orders Ordered: Discontinued Medications Sodium Chloride (Normal Saline 0.9%) 1,000 mls @ 125 mls/hr IV CONT JENNIFER Last Infusion: 04/22/22 13:44 Dose: 0 mls/hr Documented By: Admin: 04/22/22 10:56 Dose: 125 mls/hr Documented By: SANA Vital Signs Vital signs: Vital Signs - 8 hr 04/22/22 11:30 04/22/22 11:30 04/22/22 12:00 Pulse Rate 96 H Respiratory Rate 18 Blood Pressure 182/96 H 171/97 H Pulse Oximetry 95 04/22/22 12:00 04/22/22 12:29 04/22/22 12:30 Pulse Rate 95 H 92 H Respiratory Rate 18 18 Blood Pressure 162/90 H Pulse Oximetry 96 96 04/22/22 12:30 04/22/22 13:34 04/22/22 13:35 Pulse Rate 92 H 89 Respiratory Rate 18 18 Blood Pressure 162/90 H 189/113 H Pulse Oximetry 97 96 04/22/22 13:35 Pulse Rate 89 Respiratory Rate Blood Pressure Pulse Oximetry 96 Medical Decision Making <RICH Valero - Last Filed: 04/22/22 19:19> Lab Data Result diagrams: 04/22/22 10:44 04/22/22 10:44 Labs: Lab Results 04/22/22 04/22/22 04/22/22 Range/Units 10:44 10:44 10:44 WBC 9.2 (4.5-11.0) X10^3/uL RBC 4.33 L (4.5-5.9) X10^6/uL Hgb 13.7 (13.5-17.5) g/dL Hct 39.4 L (41-53) % MCV 91.1 (80-100) fL MCH 31.5 (26-34) PG MCHC 34.6 (30-36) % RDW 13.0 (11.6-14.8) % Plt Count 235 (150-400) X10^3/uL Neut % (Auto) 64.6 (50-75) % Lymph % (Auto) 27.7 (25-40) % Blanco % (Auto) 5.3 (3-14) % Eos % (Auto) 1.2 L (2-4) % Baso % (Auto) 1.2 (0-2) % Neut # (Auto) 5900 (2750-6126) /uL Lymph # (Auto) 2500 (8228-6545) /uL Blanco # (Auto) 500 (0-900) /uL Eos # (Auto) 100 (0-450) /uL Baso # (Auto) 100 (0-100) /uL Sodium 138 (137-145) mmol/L Potassium 4.4 (3.4-5.1) mmol/L Chloride 106 (98-107) mmol/L Carbon Dioxide 24 (22-32) mmol/L BUN 18 (9-20) mg/dL Creatinine 1.21 (0.66-1.25) mg/dL Estimated GFR > 60 (>60) mL/min BUN/Creatinine Ratio 14.9 (6-22) Glucose 118 H (80-110) mg/dL Calcium 9.4 (8.4-10.2) mg/dL Total Bilirubin 0.5 (0.2-1.3) mg/dL AST 70 H (17-59) IU/L ALT 95 H (<50) IU/L Alkaline Phosphatase 76 (38-126) U/L Total Creatine Kinase 80 (55-170) U/L CK-MB (CK-2) TNP CK-MB (CK-2) Rel Index TNP Troponin I < 0.012 (0.01-0.034) ng/mL NT-Pro-B Natriuret Pep 37 (<125) pg/mL Total Protein 7.7 (6.3-8.2) g/dL Albumin 4.8 (3.5-5.0) g/dL Globulin 2.9 (1.7-4.1) g/dL Albumin/Globulin Ratio 1.7 (1.0-2.8) Ethyl Alcohol < 10 ( - 10) mg/dL SARS-CoV-2 (PCR) (Negative) 04/22/22 Range/Units 10:58 WBC (4.5-11.0) X10^3/uL RBC (4.5-5.9) X10^6/uL Hgb (13.5-17.5) g/dL Hct (41-53) % MCV (80-100) fL MCH (26-34) PG MCHC (30-36) % RDW (11.6-14.8) % Plt Count (150-400) X10^3/uL Neut % (Auto) (50-75) % Lymph % (Auto) (25-40) % Blanco % (Auto) (3-14) % Eos % (Auto) (2-4) % Baso % (Auto) (0-2) % Neut # (Auto) (1637-5165) /uL Lymph # (Auto) (6525-3180) /uL Blanco # (Auto) (0-900) /uL Eos # (Auto) (0-450) /uL Baso # (Auto) (0-100) /uL Sodium (137-145) mmol/L Potassium (3.4-5.1) mmol/L Chloride (98-107) mmol/L Carbon Dioxide (22-32) mmol/L BUN (9-20) mg/dL Creatinine (0.66-1.25) mg/dL Estimated GFR (>60) mL/min BUN/Creatinine Ratio (6-22) Glucose (80-110) mg/dL Calcium (8.4-10.2) mg/dL Total Bilirubin (0.2-1.3) mg/dL AST (17-59) IU/L ALT (<50) IU/L Alkaline Phosphatase (38-126) U/L Total Creatine Kinase (55-170) U/L CK-MB (CK-2) CK-MB (CK-2) Rel Index Troponin I (0.01-0.034) ng/mL NT-Pro-B Natriuret Pep (<125) pg/mL Total Protein (6.3-8.2) g/dL Albumin (3.5-5.0) g/dL Globulin (1.7-4.1) g/dL Albumin/Globulin Ratio (1.0-2.8) Ethyl Alcohol ( - 10) mg/dL SARS-CoV-2 (PCR) Negative (Negative) Imaging Data CT scan - head: Radiologist's Impression: PROCEDURE:? CT HEAD/BRAIN WO CON ? INDICATIONS:? recent brain surgery,HTN,dizzy and nauseated ? TECHNIQUE:? Noncontrast 4.5 mm thick angled axial sections acquired from the foramen magnum to the vertex, with coronal and sagittal reformats.? For radiation dose reduction, the following was used:? automated exposure control, adjustment of mA and/or kV according to patient size.? ? COMPARISON:? [facility], CT, CT HEAD/BRAIN WO CON, 04/06/2022, 9:57. ? FINDINGS:? Image quality:? Excellent.? ? CSF spaces:? Basal cisterns are patent.? The ventricles are symmetric in size and shape.? ? ? Brain:? There is a low-density right several hematoma seen, with a maximum thickness of 1.6 cm.? No nenita acute components are seen.? This is improved compared to the prior examination.? There remains midline shift, which is also improved compared to the prior examination, now measuring 4 mm. ? No intracranial masses.? There is cerebral volume loss for age, with resultant ventricular and sulcal prominence.? There are periventricular and deep white matter chronic small vessel ischemic changes.? There is intracranial internal carotid artery atherosclerosis.? ? Skull and face:? Right-sided anant holes can be seen.? Calvarium and visualized facial bones appear intact, without suspicious lesions.? ? Sinuses:? Visualized sinuses and mastoids are clear.? ? IMPRESSION:? ? Interval right-sided anant holes, with improved right-sided subdural hematoma, yet without resolution. ? Improved midline shift, 4 mm.? ? No nenita acute interval hemorrhage is seen.? ? Dictated by: Skyler Cornejo M.D. on 04/22/2022 at 8:52 ? ? Approved by: Skyler Cornejo M.D. on 04/22/2022 at 8:54 ? head/neck CTA: Radiologist's Impression: PROCEDURE:? CT ANGIO HEAD AND NECK ? INDICATIONS:? s/p craniotomy, dizziness, incontinence x1 ? TECHNIQUE:? Noncontrast images were performed earlier in the day and not repeated.? ? After the administration of intravenous contrast, 1 mm thick sections acquired from the aortic arch through the [place] of [place].? Post-contrast 4.5 mm thick sections then re-acquired from the foramen magnum to the vertex.? 3-dimensional vusygut-dzciwwcyg-cyqflcllgh (MIP) and/or volume rendering reformats were acquired of the central intracranial vasculature and neck separately. For radiation dose reduction, the following was used:? automated exposure control, adjustment of mA and/or kV according to patient size.? ? COMPARISON:? [facility], CT, CT HEAD/BRAIN WO CON, 04/06/2022, 9:57.? [facility], CT, CT HEAD/BRAIN WO CON, 04/22/2022, 9:44. ? FINDINGS:? Image quality:? This examination is limited by involuntary motion artifact.? ? BRAIN:? CSF spaces:? Ventricles are normal in size and shape.? Basal cisterns are patent.? No extra-axial fluid collections.? ? Brain:? Stable resolving right-sided subdural hemorrhage is again seen, with 4 mm of midline shift. ? No midline shift.? Holland-white matter interface appears intact.? ? Skull and face:? Right-sided anant holes are seen.? Calvarium and facial bones appear intact, without suspicious lesions.? Orbits appear normal.? ? Sinuses:? Sinuses and mastoids are clear.? ? HEAD CT ANGIOGRAPHY:? Anterior circulation:? Intracranial internal carotid arteries are normal in size and flow.? The flow within the paired anterior cerebral arteries is normal and symmetric.? The flow within the middle cerebral arteries is normal and symmetric.? The anterior communicating artery is seen.? No aneurysms are seen.? ? Posterior circulation:? Visualized portions of the vertebral arteries demonstrate normal caliber, and join to form a normal appearing basilar artery.? Flow within the posterior cerebral arteries is normal and symmetric.? No aneurysms are seen.? ? NECK CT ANGIOGRAPHY:? Carotid system:? The great vessels demonstrate a conventional anatomy as they arise from the aortic arch.? The origins of the common carotid arteries appear patent.? The common carotid arteries demonstrate normal caliber and courses.? The bifurcation regions are both widely patent.? The internal carotid arteries demonstrate normal calibers and courses.? ? Posterior circulation:? The origins of the vertebral arteries both appear widely patent.? The more superior extracranial portions of both vertebral arteries also demonstrate normal courses and calibers.? They join to form a normal appearing basilar artery.? ? Soft tissues:? Visualized neck soft tissues demonstrate no suspicious abnormalities.? ? Bones:? No suspicious bony lesions.? Visualized cervical spine appears normally aligned.? Cervical spine degenerative changes are seen, with moderate disc space narrowing at C3-C4 and at least moderate disc space narrowing at C4-C5, C5-C6, and C6-C7.? Post erected endplate osteophytes are seen, which are worst at C5-C6. ? ? IMPRESSION:? No significant intracranial arterial abnormality is seen.? ? Stable resolving right-sided subdural hemorrhage, with associated anant holes. ? Within the arteries of the neck, no hemodynamically significant stenosis can be seen. ? ? Cervical spine degenerative changes are noted. ? Any quantitative measurements of stenosis were performed using NASCET criteria.? ? ? Dictated by: Skyler Cornejo M.D. on 04/22/2022 at 12:19 ? ? Approved by: Skyler Cornejo M.D. on 04/22/2022 at 12:22 ? ECG Data Interpretation: EKG independently reviewed by Dr. Xiao and and reveals normal sinus rhythm at 98 bpm with regular axis and intervals. No STEMI, ST segment changes, arrhythmia, or acute ischemic changes. MDM Narrative Medical decision making narrative: This is a 66-year-old who a history of gut for fermentation syndrome, and a subdural hematoma which was acute on chronic and diagnosed on 04/06/2022 with emergent transfer to [facility] for anant hole evacuation and drainage of his subdural hemorrhage with 8 mm shift. He presents to the emergency department today for dizziness today and yesterday, one episode of incontinence yesterday, and concern for elevated blood pressures above his baseline. Patient reports that he had changes to his blood pressure after his hematoma evacuation and it has been relatively stable although increased above his baseline since then. Reports that at home his systolic has been as high as 160s, diastolic as high as 110s. He denies any vision changes today or otherwise, he denies any changes to his gait, new weakness, chest pain, shortness of breath, fever, sensation changes, neck pain, or any other changes. His primary care provider is [facility], he has follow-up scheduled on 04/27/2022 at [facility] with his neurosurgrey RICH. In the emergency department today, his blood pressure is mildly elevated, his final blood pressure was a highest of all at 189/113, this was tested when he was standing, and talking, and antsy to leave. Patient is not on any anticoagulation, his head CT without contrast shows interval right-sided anant holes with improved right-sided subdural hematoma yet without complete resolution, it shows an improved midline shift of 4 mm, no nenita acute interval hemorrhage is seen. Head and neck CTA was obtained thereafter and shows no significant intracranial arterial abnormality, stable resolving right-sided subdural hemorrhage with associated bur holes, no hemodynamically significant stenosis was seen within the arteries of the neck and incidental findings of cervical spine degenerative changes are noted. Lab work obtained does not show any significant findings, patient does not have any leukocytosis, his sodium is stable at 138 compared with 140 at his prior on 04/06/2022. Potassium of 4.4 and was the same, creatinine is 1.21 and is stable compared with his baseline. Glucose of 118, mild elevation in AST and ALT compared with priors, BNP of 37, troponin of 0.012, EKG without any ST changes, arrhythmia, or other abnormality when compared with priors. Ethyl alcohol obtained due to patient's gut fermentation and level was less than 10. Patient has scheduled follow-up on 04/27, his exam is without any neuro changes today other than occasional dizziness. This could be due to dehydration, over exertion, patient reports that this is quite likely as he has been getting back to his old routine at home. Encouraged him to monitor his symptoms, return for any worsening, if he develops any vision changes, altered speech, difficulty concentrating or other symptoms to please return to the emergency department. Patient is appropriate and amenable to discharge home. Vital signs are stable on repeat examination is unremarkable. Patient has been informed of results. Patient has been given strict return to ER precautions for any new or worsening symptoms. Patient understands to follow up closely with outpatient providers as instructed. Patient understands plan and agrees to discharge home. All questions and concerns answered at this time. Emergency Medicine: Utilization of CT for Minor Blunt Head Trauma (Adult) [x] Patient is 18 or older, presenting with minor blunt head trauma. Head CT (including cosigned orders) was ordered by an emergency family day care provider for trauma because (select one or more): [SATISFIES MIPS PERFORMANCE] Reasons: [x] Patient is 65 or older [] Patient GCS < 15 [x] Patient has focal neurologic deficit <Jayson Xiao, - Last Filed: 04/28/22 00:38> Lab Data Labs: Lab Results 04/22/22 04/22/22 04/22/22 Range/Units 10:44 10:44 10:44 WBC 9.2 (4.5-11.0) X10^3/uL RBC 4.33 L (4.5-5.9) X10^6/uL Hgb 13.7 (13.5-17.5) g/dL Hct 39.4 L (41-53) % MCV 91.1 (80-100) fL MCH 31.5 (26-34) PG MCHC 34.6 (30-36) % RDW 13.0 (11.6-14.8) % Plt Count 235 (150-400) X10^3/uL Neut % (Auto) 64.6 (50-75) % Lymph % (Auto) 27.7 (25-40) % Blanco % (Auto) 5.3 (3-14) % Eos % (Auto) 1.2 L (2-4) % Baso % (Auto) 1.2 (0-2) % Neut # (Auto) 5900 (4059-8941) /uL Lymph # (Auto) 2500 (7768-9080) /uL Blanco # (Auto) 500 (0-900) /uL Eos # (Auto) 100 (0-450) /uL Baso # (Auto) 100 (0-100) /uL Sodium 138 (137-145) mmol/L Potassium 4.4 (3.4-5.1) mmol/L Chloride 106 (98-107) mmol/L Carbon Dioxide 24 (22-32) mmol/L BUN 18 (9-20) mg/dL Creatinine 1.21 (0.66-1.25) mg/dL Estimated GFR > 60 (>60) mL/min BUN/Creatinine Ratio 14.9 (6-22) Glucose 118 H (80-110) mg/dL Calcium 9.4 (8.4-10.2) mg/dL Total Bilirubin 0.5 (0.2-1.3) mg/dL AST 70 H (17-59) IU/L ALT 95 H (<50) IU/L Alkaline Phosphatase 76 (38-126) U/L Total Creatine Kinase 80 (55-170) U/L CK-MB (CK-2) TNP CK-MB (CK-2) Rel Index TNP Troponin I < 0.012 (0.01-0.034) ng/mL NT-Pro-B Natriuret Pep 37 (<125) pg/mL Total Protein 7.7 (6.3-8.2) g/dL Albumin 4.8 (3.5-5.0) g/dL Globulin 2.9 (1.7-4.1) g/dL Albumin/Globulin Ratio 1.7 (1.0-2.8) Ethyl Alcohol < 10 ( - 10) mg/dL SARS-CoV-2 (PCR) (Negative) 04/22/22 Range/Units 10:58 WBC (4.5-11.0) X10^3/uL RBC (4.5-5.9) X10^6/uL Hgb (13.5-17.5) g/dL Hct (41-53) % MCV (80-100) fL MCH (26-34) PG MCHC (30-36) % RDW (11.6-14.8) % Plt Count (150-400) X10^3/uL Neut % (Auto) (50-75) % Lymph % (Auto) (25-40) % Blanco % (Auto) (3-14) % Eos % (Auto) (2-4) % Baso % (Auto) (0-2) % Neut # (Auto) (2169-7118) /uL Lymph # (Auto) (3655-8994) /uL Blanco # (Auto) (0-900) /uL Eos # (Auto) (0-450) /uL Baso # (Auto) (0-100) /uL Sodium (137-145) mmol/L Potassium (3.4-5.1) mmol/L Chloride (98-107) mmol/L Carbon Dioxide (22-32) mmol/L BUN (9-20) mg/dL Creatinine (0.66-1.25) mg/dL Estimated GFR (>60) mL/min BUN/Creatinine Ratio (6-22) Glucose (80-110) mg/dL Calcium (8.4-10.2) mg/dL Total Bilirubin (0.2-1.3) mg/dL AST (17-59) IU/L ALT (<50) IU/L Alkaline Phosphatase (38-126) U/L Total Creatine Kinase (55-170) U/L CK-MB (CK-2) CK-MB (CK-2) Rel Index Troponin I (0.01-0.034) ng/mL NT-Pro-B Natriuret Pep (<125) pg/mL Total Protein (6.3-8.2) g/dL Albumin (3.5-5.0) g/dL Globulin (1.7-4.1) g/dL Albumin/Globulin Ratio (1.0-2.8) Ethyl Alcohol ( - 10) mg/dL SARS-CoV-2 (PCR) Negative (Negative) Discharge Plan Departure Patient Disposition: Home Clinical Impression: Subdural hematoma, Dizziness Instructions: DI for Subdural Hematoma Activity Restrictions/Additional Instructions: *You have been diagnosed with dizziness and mental status changes following your subdural hematoma evacuation two weeks ago. Your CT angio of your head and neck does not show any acute changes or any significant intracranial abnormality. You have a stable resolving right-sided subdural hemorrhage with associated anant holes. The arteries of your neck do not have any hemodynamically significant stenosis. Your head CT without contrast shows any improved midline shift of 4 mm without any acute hemorrhage. Your hematoma is resolving as it should and your electrolytes were stable without concern for systemic infection, blood clot, organ injury, or heart, lung, or other metabolic dysfunction. Your COVID test was negative, your ethyl alcohol level was less than 10. It was a pleasure to meet you, I am sure your is a wonderful partner. I wish you a good follow-up on Tuesday, [facility] [facility] as well as [facility]. Have a good rest of your weekend. Please do not forget to stay hydrated in warmer weather, do not over exert yourself following a surgery like you did, remember to change positions of your head slowly and enjoy the weather. *What to do: *Please continue to take your regular medications as directed. [ ] New medication prescriptions sent to your pharmacy: [ ] [ ] New medication written as a paper prescription [x ] No new medications given *Please follow up with your primary care provider in 2-3 days, call for an appointment. Let them know you were seen in the Emergency Department and that we asked that you be seen for follow-up. We will electronically transmit a record of today's note if your PCP is in our system *If you do not have a primary care provider please contact [phone] to establish care with one of the [facility] primary care providers. *Return to Emergency Department if you should have any new, worsening or concerning symptoms, such as [fever greater than 101F, chills, worsening pain, persistent vomiting or other bothersome symptoms] Prescriptions: No Action fluconazole 100 mg tablet 100 mg PO DAILY omeprazole 20 mg capsule,delayed release(DR/EC) 20 mg PO DAILY valsartan 320 mg tablet 160 mg PO DAILY sertraline 100 mg tablet 100 mg PO DAILY buspirone 5 mg tablet 5 mg PO BID multivitamin Tablet 1 tab PO DAILY pjzwcuwzfes-oyatv-vru-vit C-Mn 1 tab PO BID cholecalciferol (vitamin D3) 50 mcg (2,000 unit) capsule 50 mcg PO DAILY clobetasol [Temovate] 0.05 % ointment 1 applic topical BID tolterodine [Detrol LA] 4 mg capsule,extended release 24hr 4 mg PO DAILY Qty: 90 3RF Referrals: Starla Kaur PA-C [Primary Care Provider] - Visit Report Forms: Patient Portal/API <Jayson Xiao DO - Last Filed: 04/28/22 00:38> Cosign ED Attending Cososmanature Attestation: I was immediately available in the department for consultation. This documentation has been reviewed and I agree with assessment and plan. Supervised by Jayson Xiao DO
[2022-04-22 13:15] LABS: Ethanol (ETOH) < 10 mg/dL
== END 2022-04-22 13:45 | disposition home or self-care (01) ==
PROVIDERS: Emergency Medicine; Emergency Provider Nurse Practitioner Critical Care Medicine; PCP Physician Assistant
DX: S06.5X9A Traumatic subdural hemorrhage with loss of consciousness of unspecified duration, initial encounter (principal); R42 Dizziness and giddiness; I10 Essential (primary) hypertension; R79.89 Other specified abnormal findings of blood chemistry; Z20.822 Contact with and (suspected) exposure to COVID-19
CPT/HCPCS: 36415; 70450; 70496; 70498; 80053; 80320; 82550; 83880; 84484; 85025; 87635; 93005; 93010; 96360; 96361; 99284; C9803; Q9967

== ENCOUNTER → 2022-05-15 09:18 | Outpatient (CLI) | payer MEDICARE, OTHER, SELFPAY ==
[2022-05-15 11:32] LABS: Alanine Aminotransferase 172 IU/L (<50); Albumin 4.7 g/dL (3.5-5.0); Albumin Globulin Ratio 1.7 (1.0-2.8); Alkaline Phosphatase 77 U/L (38-126); Aspartate Aminotransferase 114 IU/L (17-59); Bilirubin Total 0.5 mg/dL (0.2-1.3); Bilirubin Unconjugated 0.4 mg/dL (0.0-1.1); Globulin 2.8 g/dL (1.7-4.1); HEMOLYSIS < 15 (0-50); Total Protein 7.5 g/dL (6.3-8.2)
== END ==
PROVIDERS: PCP Physician Assistant; Referring Provider Internal Medicine Infectious Disease; Visit Provider Internal Medicine Infectious Disease
DX: K71.6 Toxic liver disease with hepatitis, not elsewhere classified (principal); T50.905A Adverse effect of unspecified drugs, medicaments and biological substances, initial encounter
CPT/HCPCS: 36415; 80076

== ENCOUNTER → 2022-08-09 09:09 | Outpatient (CLI) | payer MEDICARE, OTHER, SELFPAY ==
[2022-08-09 11:26] LABS: Alanine Aminotransferase 111 IU/L (<50); Albumin 4.7 g/dL (3.5-5.0); Albumin Globulin Ratio 1.5 (1.0-2.8); Alkaline Phosphatase 84 U/L (38-126); Aspartate Aminotransferase 79 IU/L (17-59); Bilirubin Total 0.8 mg/dL (0.2-1.3); Bilirubin Unconjugated 0.7 mg/dL (0.0-1.1); Globulin 3.1 g/dL (1.7-4.1); HEMOLYSIS < 15 (0-50); Total Protein 7.8 g/dL (6.3-8.2)
== END ==
PROVIDERS: PCP Physician Assistant; Referring Provider Internal Medicine Infectious Disease; Visit Provider Internal Medicine Infectious Disease
DX: K71.6 Toxic liver disease with hepatitis, not elsewhere classified (principal); T50.905A Adverse effect of unspecified drugs, medicaments and biological substances, initial encounter
CPT/HCPCS: 36415; 80076

== ENCOUNTER → 2024-02-29 09:18 | Outpatient (CLI) | payer MEDICARE, OTHER, SELFPAY ==
[2024-03-01 14:36] LABS: PSA Free % 19.1 % (.); PSA, Total 9.5 ng/mL (0.0-4.0)
== END ==
PROVIDERS: PCP Physician Assistant; Referring Provider Urology; Visit Provider Urology
DX: R97.20 Elevated prostate specific antigen [PSA] (principal)
CPT/HCPCS: 36415; 84153; 84154